=== PATIENT | female | born 1930 | race African-American/Black ===

== ENCOUNTER 2017-09-29 12:32 | Inpatient (IN) | payer MEDICARE ==
[2017-09-29 14:29] LABS: ALT (SGPT) 117 U/L (8-55); AST (SGOT) 75 U/L (5-34); Albumin 3.7 g/dL (3.4-4.8); Alkaline Phosphatase 644 U/L (40-150); Anion Gap 26 mmol/L (10-20); BUN (Urea Nitrogen) 60 mg/dL (9.8-20.1); Bilirubin, Total 0.5 mg/dL (0.2-1.2); Calc. Creatinine Clearance 0 mL/min (70-130); Calcium 9.1 mg/dL (7.8-10.44); Carbon Dioxide 15 mmol/L (23-31); Chloride 98 mmol/L (98-107); Estimated GFR-MDRD 22; Potassium 4.9 mmol/L (3.5-5.1); Protein, Total 7.7 g/dL (6.0-8.3); Sodium 134 mmol/L (136-145)
[2017-09-29 14:39] LABS: Glucose 813 mg/dL (83-110)
[2017-09-29] MEDS ORDERED: Ondansetron HCl/PF 4 MG/2 ML Vial IVP PRN ×2 (15:17→16:26)
[2017-09-29] MEDS ORDERED: Ondansetron ODT 4 MG TAB SL PRN (15:17)
[2017-09-29] MEDS ORDERED: Dextrose 50% Abboject 50 ML SYRINGE SLOW IVP PRN (15:18)
[2017-09-29] MEDS ORDERED: Dextrose 5 %-0.45 % NaCl 1,000 ML IV PRN ×2 (15:18→16:26)
[2017-09-29] MEDS ORDERED: NS 0.9% w/ 20 MEQ KCL 1,000 ML/1,000 ML BAG IV PRN (15:18)
[2017-09-29] MEDS ORDERED: Dextrose 5% in Water 1,000 ML IV PRN ×2 (15:18→22:23)
[2017-09-29] MEDS ORDERED: D5 1/2 NS w/20 mEq KCL 1,000 ML IV PRN ×2 (15:18→16:26)
[2017-09-29] MEDS ORDERED: Sodium Chloride 0.9% 1,000 ML IV PRN ×8 (15:18→16:26)
[2017-09-29] MEDS ORDERED: Insulin Regular 300 UNITS/3 ML VIAL IVP SCH (15:30)
[2017-09-29] MEDS ORDERED: ADD ELECTROLYTE REPLACEMENT SET TO PROFILE FS SCH (15:30)
[2017-09-29] MEDS ORDERED: Ondansetron ODT 4 MG TAB PO PRN (16:26)
[2017-09-29] MEDS ORDERED: CCU Electrolyte Replacement 1 EACH IVPB ONE (16:26)
[2017-09-29] MEDS ORDERED: NS 0.9% w/ 20 MEQ KCL 1,000 ML IV PRN ×2 (16:26)
[2017-09-29] MEDS ORDERED: Acetaminophen 325 MG TAB PO PRN (16:26)
[2017-09-29] MEDS ORDERED: Milk Of Magnesia 30 ML UDCUP PO PRN (16:26)
[2017-09-29] MEDS ORDERED: Calcium Carbonate 500 MG ChewTAB PO PRN (16:26)
[2017-09-29] MEDS ORDERED: Acetaminophen 650 MG Suppository PR PRN (16:26)
[2017-09-29] MEDS ORDERED: Potassium Chloride 20 MEQ TAB PO PRN (16:50)
[2017-09-29] MEDS ORDERED: CCU ELECTROLYTE REPLACEMENT PROTOCOL FS PRN (16:50)
[2017-09-29] MEDS ORDERED: Potassium Phosphate 12 MMOL in Sodium Chloride 0.9% 250 ML 250 ML IV PRN (16:50)
[2017-09-29] MEDS ORDERED: Magnesium Oxide 400 MG TAB PO PRN ×2 (16:50)
[2017-09-29] MEDS ORDERED: Magnesium 2 GM/NS 0.9% 100 ML 2 GM in Premix Bag 1 BAG IVPB PRN (16:50)
[2017-09-29] MEDS ORDERED: Potassium Phosphate 9 MMOL in Sodium Chloride 0.9% 100 ML IVPB PRN (16:50)
[2017-09-29] MEDS ORDERED: Potassium Phosphate 15 MMOL in Sodium Chloride 0.9% 250 ML 250 ML IV PRN (16:50)
[2017-09-29] MEDS ORDERED: Potassium Chloride 40 MEQ in Sodium Chloride 0.9% 250 ML 250 ML IVPB PRN (16:50)
[2017-09-29] MEDS ORDERED: Potassium Chloride 40 MEQ in Premix Bag 1 BAG IVPB PRN (16:50)
[2017-09-29 17:21] LABS: Hemoglobin A1c 11.9 % (4.0-6.0)
[2017-09-29] MEDS: NS 0.9% w/ 20 MEQ KCL 1,000 ML/1,000 ML BAG IV PRN ×2 (17:25→20:00)
[2017-09-29] MEDS ORDERED: Mometasone/Formoterol 120 PUFF INHALER INH PRN (18:21)
[2017-09-29] MEDS ORDERED: PROVENTIL INHALER 6.7 G (200 INHALATIONS) INH PRN (18:21)
[2017-09-29 18:31] LABS: Magnesium 2.5 mg/dL (1.6-2.6)
[2017-09-29 18:35] LABS: Phosphorus 3.8 mg/dL (2.3-4.7)
--- NOTE | 2017-09-29 19:09 | ULT ---
RIGHT UPPER QUADRANT ULTRASOUND: 09/29/2017 PROVIDED CLINICAL HISTORY: Right upper quadrant pain and elevated LFTs. FINDINGS: The visualized pancreas appears normal. The IVC is obscured. The gallbladder demonstrates no stones , wall thickening, or pericholecystic fluid. The liver appears heterogeneous, without focal mass or intrahepatic biliary ductal dilatation. A small amount of free fluid is seen adjacent to the right l iver margin. The right kidney demonstrates no evidence for hydronephrosis or mass. The common duct is not dilated. IMPRESSION: 1. Heterogeneous echotexture of the liver, which may reflect changes of cirrhosis. 2. Free intraperitoneal fluid adjacent to the right liver margin, which may reflect ascites. POS: [facility]
--- NOTE | 2017-09-29 19:17 | PDOC.FPRHP ---
- History of Present Illness Chief Complaint: confusion, nausea/vomiting History of Present Illness: 86yo AAF with pmhx HTN, HLD, asthma, prior TIA, and DM2 presents with 2 day h/o progressive confusion and nausea & vomiting and sought care at [facility] with her daughter and grandson. Upon arrival to ED, initial blood glucose was found to be 1020. Daughter endorses that her mother's DM is well-controlled on 500mg metformin TID and checks her blood sugar every morning. When asking pt, she states her glucometer has read "HIGH" for the last few days, but did not tell anyone. Of note, pt regularly lives in what sounds like [place] in [place] and is visiting her daughter here in town currently. Daughter called PCP who states pts A1c was 7.8 in Mar 2017. She also has some memory problems and possible behavioral disturbances which is controlled on zoloft & seroquel. Past medical hx: - HTN well controlled on current regimen - prior TIA on plavix therapy - HLD on high intensity statin - asthma controlled on inhalers ED Course: Upon arrival to [facility], pt was started on insulin gtt at 6 mcg/hr and given 1L NS and transferred to [facility] for DKA and higher level of care. In [facility] ED, no further care was provided and we were called to admit pt as a city call. - Allergies/Adverse Reactions Allergies Allergy/AdvReac Type Severity Reaction Status Date / Time No Known Drug Allergies Allergy Verified 09/29/17 20:58 pineapple Allergy Verified 09/29/17 20:58 - Home Medications Medication Instructions Recorded Confirmed Type Albuterol Sulfate [Proair HFA] 1 inhaler PO DAILY PRN 09/29/17 09/29/17 History Amlodipine [Norvasc] 5 mg PO DAILY 09/29/17 09/29/17 History Atorvastatin Calcium [Lipitor] 40 mg PO DAILY 09/29/17 09/29/17 History Carvedilol [Carvedilol] 12.5 mg PO BID 09/29/17 09/29/17 History Clopidogrel Bisulfate [Clopidogrel] 75 mg PO DAILY 09/29/17 09/29/17 History Ferrous Sulfate [Ferrous Sulfate] 325 mg PO DAILY 09/29/17 09/29/17 History Fluticasone/Salmeterol [Advair 1 inhaler PO DAILY PRN 09/29/17 09/29/17 History Diskus 250/50] Hydrochlorothiazide 25 mg PO DAILY 09/29/17 09/29/17 History [Hydrochlorothiazide] Lactobacillus Rhamnosus GG 1 cap PO DAILY 09/29/17 09/29/17 History [Culturelle] Levothyroxine Sodium [Unithroid] 100 mcg PO DAILY 09/29/17 09/29/17 History QUEtiapine Fumarate [SEROquel] 100 mg PO QPM 09/29/17 09/29/17 History Sertraline HCl [Zoloft] 50 mg PO DAILY 09/29/17 09/29/17 History metFORMIN HCl [metFORMIN HCl] 500 mg PO TID 09/29/17 09/29/17 History - History PMHx:see above PSHx: hysterectomy, thyroidectomy FHx:unsure Social: no TAD per daughter - Review of Systems General: reports: fatigue. denies: fever/chills Eyes: denies: eye pain, vision changes ENT: denies: nasal congestion, rhinorrhea Respiratory: reports: cough (chronic x 3 yrs). denies: congestion, shortness of breath Cardiovascular: denies: chest pain, palpitation, edema Gastrointestinal: reports: nausea, vomiting, abdominal pain (ruq pain). denies : diarrhea, constipation Genitourinary: reports: polyuria. denies: dysuria, discharge Skin: denies: rashes, lesions Musculoskeletal: denies: pain, tenderness Neurological: reports: weakness. denies: numbness, syncope - Vital signs BP: [] HR: [] RR: [] Tmax: [] Pox: []% on [] Wt: [] - Physical Exam Constitutional: NAD, well developed -Constitutional: awake, alert. oriented x 1 HEENT: normocephalic and atraumatic, PERRLA, EOMI, conjunctiva clear, oropharynx clear -HEENT: hard of hearing Neck: supple, trachea midline, no LAD, no thyromegaly Chest: no lesions Heart: RRR, normal S1/S2, no murmurs/rubs/gallops, pulses present, no edema Lungs: CTAB, no respiratory distress, good air movement, no rales/rhonchi, no wheezing Abdomen: soft, bowel sounds present, no masses/distention -Abdomen: RUQ & epigastric TTP Musculoskeletal: normal structure Neurological: no focal deficit Skin: no rash/lesions, capillary refill <2 seconds, no jaundice Heme/Lymphatic: no unusual bruising or bleeding, no purpura, no petechia Psychiatric: normal mood and affect -Psychiatric: poor short term & remote history FMR H&P: Results - Labs Result Diagrams: 09/30/17 04:31 09/30/17 04:31 Lab results: Sodium 134 mmol/L (136-145) L 09/29/17 13:49 Potassium 4.9 mmol/L (3.5-5.1) 09/29/17 13:49 Chloride 98 mmol/L (98-107) 09/29/17 13:49 Carbon Dioxide 15 mmol/L (23-31) L 09/29/17 13:49 BUN 60 mg/dL (9.8-20.1) H 09/29/17 13:49 Creatinine 2.48 mg/dL (0.6-1.1) H 09/29/17 13:49 Glucose 813 mg/dL (83-110) H* 09/29/17 13:49 Calcium 9.1 mg/dL (7.8-10.44) 09/29/17 13:49 Total Bilirubin 0.5 mg/dL (0.2-1.2) 09/29/17 13:49 AST 75 U/L (5-34) H 09/29/17 13:49 ALT 117 U/L (8-55) H 09/29/17 13:49 Alkaline Phosphatase 644 U/L (40-150) H 09/29/17 13:49 Serum Total Protein 7.7 g/dL (6.0-8.3) 09/29/17 13:49 Albumin 3.7 g/dL (3.4-4.8) 09/29/17 13:49 Laboratory Tests 09/29/17 09/29/17 09:20 17:04 WBC 8.8 Hgb 11.8 L Hct 39.4 Plt Count 317 B-Hydroxybutyrate 5.65 H - EKG Interpretation EKG: sinus tach to 108 on tele monitor - Radiology Interpretation CT scan - head Status: report reviewed by me Additional comment: in outside ED, negative FMR H&P: A/P - Problem List (1) Diabetic ketoacidosis associated with type 2 diabetes mellitus Current Visit: Yes Onset Date: ~09/29/17 Status: Acute Priority: High Code(s): E11.10 - TYPE 2 DIABETES MELLITUS WITH KETOACIDOSIS WITHOUT COMA Qualifiers: Diabetes mellitus complication detail: without coma Qualified Code(s): E11.10 - Type 2 diabetes mellitus with ketoacidosis without coma (2) Acute kidney injury Current Visit: Yes Status: Acute Priority: High Code(s): N17.9 - ACUTE KIDNEY FAILURE, UNSPECIFIED (3) Transaminitis Current Visit: Yes Status: Acute Priority: Medium Code(s): R74.0 - NONSPEC ELEV OF LEVELS OF TRANSAMNS & LACTIC ACID DEHYDRGNSE (4) HTN (hypertension) Current Visit: Yes Status: Chronic Priority: Low Code(s): I10 - ESSENTIAL (PRIMARY) HYPERTENSION Qualifiers: Hypertension type: essential hypertension Qualified Code(s): I10 - Essential (primary) hypertension (5) Hypothyroidism associated with surgical procedure Current Visit: Yes Status: Chronic Priority: Low Code(s): E89.0 - POSTPROCEDURAL HYPOTHYROIDISM Comment: s/p thyroidectomy (6) Depression Current Visit: Yes Status: Chronic Priority: Low Code(s): F32.9 - MAJOR DEPRESSIVE DISORDER, SINGLE EPISODE, UNSPECIFIED Qualifiers: Depression Type: unspecified Qualified Code(s): F32.9 - Major depressive disorder, single episode, unspecified (7) Memory impairment Current Visit: Yes Status: Suspected Priority: Low Code(s): R41.3 - OTHER AMNESIA (8) Hx-TIA (transient ischemic attack) Current Visit: Yes Status: Chronic Priority: Low - Plan 1) DKA- restart DKA protocol as pt has been anuric since [facility] and requires much more IV fluids. Continue insulin gtt at 6, then follow DKA protocol and electrolyte repletion. check a1c. it appears the etiology is decline in DM care as pt states her BS have been elevated lately. No signs of infection at this time, but will also check RUQ US given elevated LFTs and RUQ ttp. 2) Transaminitis- check RUQ US, hepatitis panel, GGT. 3) ERIC vs. CKD- unknown baseline function. fluid repletion and monitor renal fxn with bmp q4hr per DKA protocol. 4) HTN- continue home meds 5) HLD- cont high intensity statin 6) h.o TIA- cont plavix. 7) asthma- cont home inhalers, not exacerbated today 8) depression- cont home meds FMR H&P: Upper Level - Pertinent history I am the upper level resident- no internal medicine physician assistant note necessary. Attending Addendum - Attending Addendum Date/Time: 09/29/17 8666 I personally evaluated the patient and discussed the management with Dr. Agee I agree with the History, Examination, Assessment and Plan documented above with any addition or exceptions noted below. 86 yo diabetic female admitted for DKA. Currently denies pain. Reports only "cold-like" symptoms recently with a cough. Daughter at bedside states she has history of seasonal allergies and has had a cough only. Reports she takes her medication as directed. Denies side effects. Reports elevated blood glucose readings at home over the past few days. VSS. Images and labs reviewed. Decreased UOP. Tired on exam but happy. RRR. CTA bilaterally. 1. DKA: Hx of controlled DM but appears to no longer be the case. Patient with mild senile dementia. Has been taking medication but glucose readings have been too high to calculate on home monitor. Now able to communicate and no longer altered. Has been on insulin drip since transfer. Start DKA protocol. Restart IVFs. Will bolus next liter. Stat labs. Add electrolytes and bicarb as needed. If still with significant gap or low bicarb will need ABG to confirm. Hold metformin. Will need to start insulin for home. DM education prior to d/c. 2. ERIC: Trend. Monitor output. 3. Transaminitis: Unsure etiology. Possibly related to ketosis but will workup. JULIO barth pending. Adjust home meds for co-morbid conditions. Lovenox. Full code. Kathy
[2017-09-29 19:42] LABS: ALT (SGPT) 96 U/L (8-55); AST (SGOT) 62 U/L (5-34); Albumin 3.2 g/dL (3.4-4.8); Alkaline Phosphatase 543 U/L (40-150); Anion Gap 12 mmol/L (10-20); BUN (Urea Nitrogen) 45 mg/dL (9.8-20.1); Bilirubin, Total 0.6 mg/dL (0.2-1.2); Calc. Creatinine Clearance 22 mL/min (70-130); Calcium 8.3 mg/dL (7.8-10.44); Carbon Dioxide 24 mmol/L (23-31); Chloride 109 mmol/L (98-107); Estimated GFR-MDRD 34; Globulin 3.4 g/dL (2.4-3.5); Glucose 375 mg/dL (83-110); Potassium 3.9 mmol/L (3.5-5.1); Protein, Total 6.6 g/dL (6.0-8.3); Sodium 141 mmol/L (136-145)
[2017-09-29 20:01] LABS: HBCM Index 0.08 S/CO (0-0.79); HBSAg Index 0.17 S/CO (0-0.99); Hep A IgM AB Non-Reactive (NonReactive); Hep A IgM S/CO 0.13 S/CO (0-0.79); Hep B Surf Ag Non-Reactive S/CO (NonReactive); Hep C IgG Ab Non-Reactive (NonReactive); Hep C Index 0.07 S/CO (0-0.79); Hepatitis B Core IGM Abs Non-Reactive (NonReactive)
[2017-09-29] MEDS ORDERED: Famotidine 20 MG TAB PO SCH (21:00)
[2017-09-29] MEDS: Heparin 5,000 UNITS/ML VIAL SC SCH (21:15)
[2017-09-29] MEDS: Carvedilol 25 MG TAB PO SCH (21:16)
[2017-09-29] MEDS: Atorvastatin Calcium 40 MG TAB PO SCH (21:16)
[2017-09-29] MEDS: Docusate 100 MG CAP PO SCH (21:26)
[2017-09-29] MEDS ORDERED: Insulin Glargine 10 UNITS in Pre-Filled Syringe 1 EACH SC SCH (22:45)
[2017-09-30 01:15] LABS: ALT (SGPT) 92 U/L (8-55); AST (SGOT) 74 U/L (5-34); Alkaline Phosphatase 499 U/L (40-150); Anion Gap 7 mmol/L (10-20); BUN (Urea Nitrogen) 36 mg/dL (9.8-20.1); Bilirubin, Total 0.6 mg/dL (0.2-1.2); Calc. Creatinine Clearance 30 mL/min (70-130); Calcium 8.4 mg/dL (7.8-10.44); Carbon Dioxide 25 mmol/L (23-31); Chloride 115 mmol/L (98-107); Estimated GFR-MDRD 48; Globulin 3.2 g/dL (2.4-3.5); Glucose 136 mg/dL (83-110); Potassium 4.1 mmol/L (3.5-5.1); Protein, Total 6.2 g/dL (6.0-8.3); Sodium 143 mmol/L (136-145)
[2017-09-30 04:56] LABS: #Lymphocytes 1.8 thou/uL (1.20-3.40); #Monocytes 0.8 thou/uL (0.11-0.59); #Neutrophils 8.9 thou/uL (1.40-6.50); %Basophils 0.3 % (0.0-1.0); %Eosinophils 0.3 % (0.0-10.0); %Lymphocytes 15.4 % (21.0-51.0); %Monocytes 7.2 % (0.0-10.0); %Neutrophils 76.8 % (42.0-75.0); Hemoglobin 11.6 g/dL (12.0-16.0); INR-International Normal Ratio 1.3; Mean Corpuscular HGB CONC 32.2 g/dL (32.0-36.0); Mean Corpuscular Hemoglobin 27.6 pg (27.0-31.0); Mean Corpuscular Volume 85.9 fl (81.0-99.0); Mean Platelet Volume 8.7 fL (7.4-10.4); PTT 27.7 SEC (22.9-36.1); Platelet Count 291 thou/uL (130-400); Prothrombin Time 16.1 SEC (12.0-14.7); RBC Distribution Width 14.9 % (11.5-14.5); Red Blood Cell (RBC) Count 4.18 mill/uL (4.20-5.40); White Blood Cell (WBC) Count 11.5 thou/uL (4.8-10.8)
[2017-09-30 05:35] LABS: ALT (SGPT) 94 U/L (8-55); AST (SGOT) 97 U/L (5-34); Albumin 3.1 g/dL (3.4-4.8); Alkaline Phosphatase 500 U/L (40-150); Anion Gap 9 mmol/L (10-20); BUN (Urea Nitrogen) 32 mg/dL (9.8-20.1); Bilirubin, Total 0.7 mg/dL (0.2-1.2); Calc. Creatinine Clearance 31 mL/min (70-130); Calcium 8.5 mg/dL (7.8-10.44); Carbon Dioxide 23 mmol/L (23-31); Chloride 114 mmol/L (98-107); Estimated GFR-MDRD 50; Globulin 3.2 g/dL (2.4-3.5); Glucose 238 mg/dL (83-110); Phosphorus 1.6 mg/dL (2.3-4.7); Potassium 4.2 mmol/L (3.5-5.1); Protein, Total 6.3 g/dL (6.0-8.3); Sodium 142 mmol/L (136-145)
[2017-09-30] MEDS: Levothyroxine Sodium 100 MCG TAB PO SCH (05:51)
[2017-09-30] MEDS: HumaLOG 300 UNITS/3 ML VIAL SC PRN ×4 (05:53→21:05)
--- NOTE | 2017-09-30 07:43 | PDOC.FM ---
- Subjective Subjective: Patient found in bed, states she is feeling well and hungry. She specifically denies nausea, abd pain, fever, chills. Daughter at bedside express concern that metformin triggered this incidence. 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 - Objective MAR Reviewed: Yes Vital Signs & Weight: Vital Signs (12 hours) Temp Pulse Resp BP Pulse Ox 09/30/17 07:24 98.2 F 77 16 109/56 L 95 09/30/17 03:56 98.9 F 108 H 18 128/64 99 09/30/17 00:00 100 20 105/57 L 96 09/29/17 23:39 108 H 20 98 09/29/17 21:36 116 H 16 96 Weight Weight 61.235 kg I&O: 09/29/17 09/30/17 10/01/17 06:59 06:59 06:59 Intake Total 4487 Output Total 1601 Balance 2886 Result Diagrams: 09/30/17 04:31 09/30/17 04:31 <Hussein Gillespie M - Last Filed: 09/30/17 10:21> - Objective Vital Signs & Weight: Vital Signs (12 hours) Temp Pulse Resp BP Pulse Ox 09/30/17 10:58 98.9 F 113 H 16 98/42 L 100 09/30/17 08:16 77 09/30/17 08:00 98.2 F 77 16 95 09/30/17 07:24 98.2 F 77 16 109/56 L 95 09/30/17 03:56 98.9 F 108 H 18 128/64 99 09/30/17 00:00 100 20 105/57 L 96 09/29/17 23:39 108 H 20 98 Weight Weight 61.235 kg I&O: 09/29/17 09/30/17 10/01/17 06:59 06:59 06:59 Intake Total 4487 Output Total 1601 Balance 2886 Result Diagrams: 09/30/17 04:31 09/30/17 04:31 <Lee Paredes R - Last Filed: 09/30/17 11:01> Phys Exam - Physical Examination Constitutional: NAD HEENT: moist MMs Neck: supple Respiratory: no wheezing, no rales, no rhonchi Cardiovascular: RRR, no significant murmur Gastrointestinal: soft Musculoskeletal: no edema Neurological: non-focal, moves all 4 limbs Lymphatic: no nodes Psychiatric: normal affect, A&O x 3 Skin: no rash <Hussein Gillespie M - Last Filed: 09/30/17 10:21> Dx/Plan (1) Diabetic ketoacidosis associated with type 2 diabetes mellitus Code(s): E11.10 - TYPE 2 DIABETES MELLITUS WITH KETOACIDOSIS WITHOUT COMA Status: Acute QualifierTitle: Diabetes mellitus complication detail: without coma Qualified Code(s): E11.10 - Type 2 diabetes mellitus with ketoacidosis without coma Plan: DKA vs HHS. Resolving issue. Insulin drip stopped after anion gap closed and bicarb normalized. Patient is now tolerating PO intake. Plan to keep basal insulin at day for now and adjust as needed. (2) Acute kidney injury Code(s): N17.9 - ACUTE KIDNEY FAILURE, UNSPECIFIED Status: Acute Plan: Resolving issue. Cr is lowering after fluid hydration. Will continue monitoring. Urine output appropriate. (3) Transaminitis Code(s): R74.0 - NONSPEC ELEV OF LEVELS OF TRANSAMNS & LACTIC ACID DEHYDRGNSE Status: Acute Plan: Continue to be elevated. Pending AMA and smooth muscle labs. Hep panel negative. GGT elevated, suggesting transamniitis to be of liver origin and US suggest cirrhosis. Possible CASSIDY at this time. (4) Depression Code(s): F32.9 - MAJOR DEPRESSIVE DISORDER, SINGLE EPISODE, UNSPECIFIED Status : Chronic QualifierTitle: Depression Type: unspecified Qualified Code(s): F32.9 - Major depressive disorder, single episode, unspecified Plan: Resumed patient's home medication. (5) HTN (hypertension) Code(s): I10 - ESSENTIAL (PRIMARY) HYPERTENSION Status: Chronic QualifierTitle: Hypertension type: essential hypertension Qualified Code( s): I10 - Essential (primary) hypertension Plan: BP controlled at this time. Resumed home meds. (6) Hypothyroidism associated with surgical procedure Code(s): E89.0 - POSTPROCEDURAL HYPOTHYROIDISM Status: Chronic Plan: Continue levothyroxine. (7) HLD (hyperlipidemia) Code(s): E78.5 - HYPERLIPIDEMIA, UNSPECIFIED Status: Acute Plan: Continue atorvastatin. <Hussein Gillespie M - Last Filed: 09/30/17 10:21> Attending Addendum - Attending Addendum Date/Time: 09/30/17 7209 I personally evaluated the patient and discussed the management with Dr. Gillespie. I agree with the History, Examination, Assessment and Plan documented above with any addition or exceptions noted below. Patient admitted for profound hyperglycemia and altered mentation 2/2 DKA. Her acidosis has resolved and normal anion gap. Her blood sugars are better controlled and we will transition to SQ long acting insulin and titrate as necessary. Holding Metformin for now due to renal function, though it is improving. LFT may be elevated due to severe acidosis and will trend those values, no evidence of pathology or obstruction on RUQ U/S that would lead to this elevation. Will transfer to medical unit this afternoon as long as blood sugars stable. <Lee Paredes R - Last Filed: 09/30/17 11:01>
[2017-09-30] MEDS: Famotidine 20 MG TAB PO SCH (08:14)
[2017-09-30] MEDS: Clopidogrel Bisulfate 75 MG TAB PO SCH (08:14)
[2017-09-30] MEDS: Ferrous Sulfate 325 MG TAB PO SCH (08:15)
[2017-09-30] MEDS: Heparin 5,000 UNITS/ML VIAL SC SCH ×3 (08:15→21:03)
[2017-09-30] MEDS: Carvedilol 25 MG TAB PO SCH ×2 (08:16→21:02)
[2017-09-30] MEDS: Docusate 100 MG CAP PO SCH ×2 (08:16→21:03)
[2017-09-30] MEDS: Hydrochlorothiazide 25 MG TAB PO SCH (08:16)
[2017-09-30] MEDS: Amlodipine 5 MG TAB PO SCH (08:16)
--- NOTE | 2017-09-30 09:54 | RAD ---
AP VIEW CHEST: Date: 09/30/17 INDICATION: Cough. COMPARISON: Prior exam dated 09/29/17. FINDINGS: Stable elevated right hemidiaphragm. Lungs are clear. Cardiomediastinal silhouette is within normal l imits. Vascular calcifications of the aortic arch are similar. Chronic osseous changes are similar. IMPRESSION: No acute abnormality. POS: [facility]
[2017-09-30 12:28] VITALS: BMI 22.4
[2017-09-30] MEDS: cefTRIAXone\\ROCEPHIN 1 GM in Sodium Chloride 0.9% 100 ML IVPB SCH (15:10)
--- NOTE | 2017-09-30 19:20 | CON ---
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 She has diabetes. She has a daughter who is a nurse as well. She historically has done a great job of taking care of her diabetes. She lives in [place], but may be moving here to live with her daughter. She presented with feeling of weakness with some confusion. She had a glucose over 1000. She was admitted with a diagnosis of DKA from [place], transferred here on an insulin drip. PAST MEDICAL HISTORY: Remarkable for: 1. Type 2 diabetes. 2. Asthma since she moved to [place]. 3. History of hypertension. 4. History of lipid disorder. 5. History of a TIA in the past. 6. Status post hysterectomy. 7. History of thyroid surgery. SOCIAL HISTORY: She is nonsmoker, nondrinker. REVIEW OF SYSTEMS: Otherwise negative. She says she feels much better. She has no complaints at this time, although she feels a little congested in her chest. PHYSICAL EXAMINATION: VITAL SIGNS: She is afebrile, heart rate 83, respiratory rate 18, oximetry is 93 on room air, blood pressure 120/55. HEENT: Pupils are equal. Sclerae are anicteric. NECK: Supple. LUNGS: Remarkable for rhonchorous wheezes diffusely that are mild. HEART: Regular rhythm, no S3. S1 and S2 are normal. ABDOMEN: Soft and nontender. No masses are palpated. EXTREMITIES: No clubbing, cyanosis or edema. NEUROLOGIC: Grossly nonfocal. LABORATORY DATA: White count 11.5, hemoglobin 11.6, platelets 291,000. The urine specimen was obtained in [place], but for some reason at over 24 hours out. There is no culture available. She did not have active urine sediment, but her daughter is fairly convinced that she has a UTI, which is lead to her diabetes issues. Liver enzymes were noted to be elevated with an AST 97, ALT 94, alkaline phosphatase 500. She had an abdominal ultrasound done yesterday afternoon, which was suggestive of a cirrhotic liver. Chest radiograph is clear. IMPRESSION: 1. Asthma with ?bronchitis. 2. ?cystitis, based on the history provided by the daughter. With an unremarkable sediment, this becomes less likely but since we cannot obtain the culture results from [place], I will simply repeat culture and recommend one dose of Rocephin. If She has coexistent bronchitis, this will treat this as well. I will start her on around the clock nebulizer treatments. With regards to her diabetes issues, it is extremely unlikely that her metabolic acidosis is type 1 diabetes with diabetic ketoacidosis. It is much more likely that this was extreme intravascular volume depletion with hyperosmolar hyperglycemic event. Beta hydroxybutyrate can cross assay with starvation ketones and she reports that her p.o. intake has been poor for a couple of days. She says she has not been able to keep up with her desire to drink enough liquids. She said her thirst has been horrible for several days. She is stable to move out of the Critical Care Unit in my opinion, although she is still having labile blood glucoses. She will need to find a physician in the [facility] area if she is going to be living with her daughter to help her manage her diabetes. The etiology of her liver problems is not clear. A 50-minute consult greater than 50% of the time was spent coordinating care on the unit. JACQUE
[2017-09-30] MEDS ORDERED: Insulin Glargine 10 UNITS in Pre-Filled Syringe 1 EACH SC SCH ×2 (21:00→22:22)
[2017-09-30] MEDS ORDERED: Insulin Glargine 15 UNITS in Pre-Filled Syringe 1 EACH SC SCH (21:00)
[2017-09-30] MEDS: Atorvastatin Calcium 40 MG TAB PO SCH (21:02)
[2017-10-01 03:28] LABS: #Eosinphils 0.1 thou/uL (0.0-0.7); #Monocytes 0.4 thou/uL (0.11-0.59); #Neutrophils 4.1 thou/uL (1.40-6.50); %Basophils 0.5 % (0.0-1.0); %Monocytes 6.6 % (0.0-10.0); %Neutrophils 61.9 % (42.0-75.0); Hemoglobin 10.8 g/dL (12.0-16.0); Mean Corpuscular HGB CONC 31.9 g/dL (32.0-36.0); Mean Corpuscular Hemoglobin 27.2 pg (27.0-31.0); Mean Corpuscular Volume 85.2 fl (81.0-99.0); Mean Platelet Volume 8.1 fL (7.4-10.4); Platelet Count 240 thou/uL (130-400); RBC Distribution Width 14.8 % (11.5-14.5); Red Blood Cell (RBC) Count 3.98 mill/uL (4.20-5.40); White Blood Cell (WBC) Count 6.7 thou/uL (4.8-10.8)
[2017-10-01 03:47] LABS: Anion Gap 7 mmol/L (10-20); BUN (Urea Nitrogen) 17 mg/dL (9.8-20.1); Calc. Creatinine Clearance 45 mL/min (70-130); Calcium 8.9 mg/dL (7.8-10.44); Carbon Dioxide 30 mmol/L (23-31); Chloride 106 mmol/L (98-107); Estimated GFR-MDRD 77; Glucose 279 mg/dL (83-110); Magnesium 1.7 mg/dL (1.6-2.6); Potassium 3.6 mmol/L (3.5-5.1); Sodium 139 mmol/L (136-145)
[2017-10-01 04:02] LABS: Phosphorus 1.7 mg/dL (2.3-4.7)
[2017-10-01] MEDS: Levothyroxine Sodium 100 MCG TAB PO SCH (06:05)
[2017-10-01] MEDS: HumaLOG 300 UNITS/3 ML VIAL SC PRN ×2 (06:07→11:57)
[2017-10-01] MEDS ORDERED: Insulin Glargine 20 UNITS in Pre-Filled Syringe 1 EACH SC SCH (07:19)
--- NOTE | 2017-10-01 07:31 | PDOC.FM ---
- Subjective Subjective: Patient feels well, denies fever, SOB, pain. State she has been walking, tolerating PO intake. - Objective MAR Reviewed: Yes Vital Signs & Weight: Vital Signs (12 hours) Temp Pulse Resp BP Pulse Ox 10/01/17 06:08 111 H 18 93 L 10/01/17 05:15 98 F 110 H 137/87 90 L 10/01/17 00:57 109 H 18 92 L 09/30/17 20:00 98.3 F 80 16 91 L Weight Admit Weight 61.2 kg Weight 61.235 kg I&O: 09/30/17 10/01/17 10/02/17 06:59 06:59 06:59 Intake Total 4487 720 Output Total 1601 Balance 2886 720 Result Diagrams: 10/01/17 03:20 10/01/17 03:20 <Hussein Gillespie M - Last Filed: 10/01/17 11:26> - Objective Vital Signs & Weight: Vital Signs (12 hours) Temp Pulse Resp BP Pulse Ox 10/01/17 08:21 98.6 F 81 16 118/74 98 10/01/17 08:00 98.6 F 81 16 118/74 98 10/01/17 06:08 111 H 18 93 L 10/01/17 05:15 98 F 110 H 137/87 90 L 10/01/17 00:57 109 H 18 92 L Weight Admit Weight 61.2 kg Weight 61.235 kg I&O: 09/30/17 10/01/17 10/02/17 06:59 06:59 06:59 Intake Total 4487 720 Output Total 1601 Balance 2886 720 Result Diagrams: 10/01/17 03:20 10/01/17 03:20 <Lee Paredes R - Last Filed: 10/01/17 11:32> Phys Exam - Physical Examination Constitutional: NAD HEENT: moist MMs Neck: no nodes, supple Rhonchi present Cardiovascular: RRR Gastrointestinal: soft, no distention Musculoskeletal: no edema Neurological: non-focal, moves all 4 limbs Lymphatic: no nodes Psychiatric: A&O x 3 Deviation from normal: Sometime thinks she still is in [place] Skin: no rash <Hussein Gillespie M - Last Filed: 10/01/17 11:26> Dx/Plan (1) Diabetic hyperosmolar non-ketotic state Code(s): E11.00 - TYPE 2 DIAB W HYPROSM W/O NONKET HYPRGLY-HYPROS COMA ([facility]) Status: Acute Plan: Glucose still elevated, titrating basal dose, will likely add pre-meal insulin. Glucose is improved compared to admission (2) Acute kidney injury Code(s): N17.9 - ACUTE KIDNEY FAILURE, UNSPECIFIED Status: Acute Plan: Resolving issue. Cr continue to drop, urine output adequate. UA currently negative. Less then 10,000 cfu of yeast (3) Transaminitis Code(s): R74.0 - NONSPEC ELEV OF LEVELS OF TRANSAMNS & LACTIC ACID DEHYDRGNSE Status: Acute Plan: Family had concern that patient may have elevated ammonia from liver injury, ammonia was normal today. (4) Hypophosphatemia Code(s): E83.39 - OTHER DISORDERS OF PHOSPHORUS METABOLISM Status: Acute Plan: Mildly depressed, but improved from previous day. Patient is eating, getting phosphate oral supplement for treatment (5) Depression Code(s): F32.9 - MAJOR DEPRESSIVE DISORDER, SINGLE EPISODE, UNSPECIFIED Status : Chronic QualifierTitle: Depression Type: unspecified Qualified Code(s): F32.9 - Major depressive disorder, single episode, unspecified Plan: Resumed patient's home medication. (6) HTN (hypertension) Code(s): I10 - ESSENTIAL (PRIMARY) HYPERTENSION Status: Chronic QualifierTitle: Hypertension type: essential hypertension Qualified Code( s): I10 - Essential (primary) hypertension Plan: BP controlled at this time. Resumed home meds. (7) Hypothyroidism associated with surgical procedure Code(s): E89.0 - POSTPROCEDURAL HYPOTHYROIDISM Status: Chronic Plan: Continue levothyroxine. (8) HLD (hyperlipidemia) Code(s): E78.5 - HYPERLIPIDEMIA, UNSPECIFIED Status: Acute Plan: Continue atorvastatin. <Hussein Gillespie - Last Filed: 10/01/17 11:26> Attending Addendum - Attending Addendum Date/Time: 10/01/17 5271 I personally evaluated the patient and discussed the management with Dr. Gillespie. I agree with the History, Examination, Assessment and Plan documented above with any addition or exceptions noted below. Patient doing well this morning. She has had improved blood sugars after initiation of insulin therapy, and this has been titrated some. Metabolic acidosis resolved as well. Encourage diet and PO intake. If sugars consistently below 300 today, can be discharged this evening with outpatient follow up next week. Her breathing status is improved and she has normal sats on room air. Ambulating without difficulty. <Lee Paredes - Last Filed: 10/01/17 11:32>
[2017-10-01 08:20] VITALS: BP 118/74; TEMP 98.6
[2017-10-01] MEDS: Ferrous Sulfate 325 MG TAB PO SCH (08:24)
[2017-10-01] MEDS: Docusate 100 MG CAP PO SCH (08:24)
[2017-10-01] MEDS: Carvedilol 25 MG TAB PO SCH (08:24)
[2017-10-01] MEDS: Amlodipine 5 MG TAB PO SCH (08:25)
[2017-10-01] MEDS: Famotidine 20 MG TAB PO SCH (08:25)
[2017-10-01 08:26] LABS: ALT (SGPT) 109 U/L (8-55); AST (SGOT) 166 U/L (5-34); Albumin 2.9 g/dL (3.4-4.8); Alkaline Phosphatase 457 U/L (40-150); Bilirubin, Direct 0.4 mg/dL (0.1-0.3); Bilirubin, Total 0.7 mg/dL (0.2-1.2); Protein, Total 5.9 g/dL (6.0-8.3)
[2017-10-01] MEDS: Hydrochlorothiazide 25 MG TAB PO SCH (08:26)
[2017-10-01] MEDS: Clopidogrel Bisulfate 75 MG TAB PO SCH (08:26)
[2017-10-01] MEDS: Heparin 5,000 UNITS/ML VIAL SC SCH ×2 (08:27→16:19)
--- NOTE | 2017-10-01 10:18 | PRG ---
DATE OF SERVICE: 10/01/2017 She was stable overnight. PHYSICAL EXAMINATION: VITAL SIGNS: She is afebrile, heart rate 81, respiratory rate 16, oximetry is 98, blood pressure 11 8/74. LUNGS: Still remarkable for wheezes. HEART: Regular rhythm. ABDOMEN: Soft. LABORATORY DATA: White count 6.7, hemoglobin 10.8, platelets 240,000. Sodium 139, potassium 3.6, chloride 106, bicarbonate 30, BUN 17, creatinine 0.85. IMPRESSION: 1. Asthma with ? bronchitis. She received Rocephin. I have written a prescription for a nebulizer to place budesonide and Brovana in a mixture to nebulize twice a day. 2. Diabetes, status post hyperosmolar coma. This is being managed by the residents. 3. ? Cirrhosis with elevated liver enzymes. She does not have a coagulopathy on yesterday's labs. We will follow from a distance. I will follow her in 1-2 months in the clinic for her asthma. Urine culture grew out yeast in [place], mixed dominik was on the culture here so this probably wa s not a great clean catch specimen.
[2017-10-01] MEDS: cefTRIAXone\\ROCEPHIN 1 GM in Sodium Chloride 0.9% 100 ML IVPB SCH (16:18)
[2017-10-01 17:20] LABS: EliA Vaculitis New Method **** NEW METHOD ****
[2017-10-01] MEDS ORDERED: Insulin Glargine 25 UNITS in Pre-Filled Syringe SC SCH (21:00)
== END 2017-10-01 16:46 | disposition home or self-care (01) | DRG 638 ==
LOC: ERS 12:32 → IMCU/EMU 14:16 → T4-A 09-30 18:53
PROVIDERS: ADMIT Family Medicine; ATTEND Family Medicine
DX: E11.01 Type 2 diabetes mellitus with hyperosmolarity with coma (principal); N17.9 Acute kidney failure, unspecified; J45.909 Unspecified asthma, uncomplicated; I10 Essential (primary) hypertension; R74.0 Nonspecific elevation of levels of transaminase and lactic acid dehydrogenase [LDH]; E83.39 Other disorders of phosphorus metabolism; F32.9 Major depressive disorder, single episode, unspecified; E78.5 Hyperlipidemia, unspecified; E89.0 Postprocedural hypothyroidism; J40 Bronchitis, not specified as acute or chronic; N30.90 Cystitis, unspecified without hematuria; Z90.711 Acquired absence of uterus with remaining cervical stump
CPT/HCPCS: 36415; 36416; 71045; 76705; 80048; 80053; 80074; 80076; 82010; 82140; 82977; 83036; 83516; 83735; 84100; 84443; 85025; 85610; 85730; 87086; 87633; 94640; 96365; 96366; G8978-GP-CJ; G8979-GP-CJ; G8980-GP-CJ; G8987-GO-CI; G8988-GO-CI; G8989-GO-CI; J0696; J1644; J7050; J7620